=== PATIENT | female | born 1985 | race African-American/Black ===

== ENCOUNTER 2021-06-25 06:13 | Inpatient (IN) | payer MEDICAID ==
[~2021-06-25] VITALS: Ht 167.6 cm; Wt 56.0 kg
[2021-06-25 07:47] LABS: HEMATOCRIT. 35.1 % (36.0-48.0); HEMOGLOBIN. 11.6 g/dL (12.0-16.0); MEAN CORPUSCULAR HEMOGLOBIN 23.3 pg (28.0-32.0); MEAN CORPUSCULAR VOLUME 70.3 fL (81.0-99.0); MEAN PLATELET VOLUME 8.5 fl (7.4-10.4); PLATELET 278 x1000/uL (130-400); RED BLOOD CELL COUNT 4.99 mill/uL (4.2-5.4); RED CELL DISTRIBUTION WIDTH 15.4 % (11.6-14.6)
[2021-06-25 07:53] LABS: CHLORIDE 103 mEq/L (98-107)
[2021-06-25 07:57] LABS: INR 1.1; PROTHROMBIN TIME 11.4 sec (9.6-11.0)
[2021-06-25 09:27] LABS: BG BASE EXCESS 0.3 mmol/L (-2.0-2.0); BG CARBOXYHEMOGLOBIN 0.3 % (0.5-1.5); BG DEOXYHEMOGLOBIN 1.2 % (0.0-5.0); BG FRACTION INSPIRED OXYGEN 28; BG HCO3 ACT 19.7 mmol/L (22.0-26.0); BG METHEMOGLOBIN 0.1 % (0.0-1.5); BG OXYGEN SATURATION 98.8 % (92.0-98.5); BG OXYHEMOGLOBIN 98.4 % (94.0-97.0); BG PCO2 20.1 mmHg (35.0-45.0); BG SAMPLE SITE RIGHT RADIAL; BG TOTAL HEMOGLOBIN 12.6 g/dL (12.0-18.0); BG VENT MODE NASAL CANNULA
[2021-06-25 10:47] LABS: PLATELET ESTIMATE NORMAL
[2021-06-25] MEDS ORDERED: VANCOMYCIN 1 G PREMIX 200 ML IV ONE (12:15)
[2021-06-25] MEDS ORDERED: PIPERACILLIN/TAZ 3.375G PREMIX 50 ML IV ONE (12:15)
[2021-06-25 12:27] LABS: C REACTIVE PROTEIN QUANT 0.2 mg/L (0.0-3.0)
[2021-06-25 12:54] LABS: D-DIMER 0.77 mg/L FEU (<0.50)
[2021-06-25] MEDS ORDERED: ZOLPIDEM TARTRATE 5MG TABLET PO PRN (15:30)
[2021-06-25] MEDS ORDERED: KETOROLAC 15MG/ML VIAL IV PRN (15:30)
[2021-06-25] MEDS ORDERED: GUAIFENESIN 200MG/10ML SUGAR FREE UDC PO PRN (15:30)
[2021-06-25] MEDS ORDERED: DOCUSATE SODIUM 100MG CAPSULE PO PRN (15:30)
[2021-06-25] MEDS ORDERED: MAGNESIUM/ALUMINUM HYDROXIDE/SIMETHICONE 30ML UDC PO PRN (15:30)
[2021-06-25] MEDS ORDERED: ACETAMINOPHEN 325MG TABLET PO PRN ×2 (15:30)
[2021-06-25] MEDS ORDERED: ALBUTEROL 6.7GM HFA INHALER ORI PRN (15:30)
[2021-06-25] MEDS ORDERED: CLONIDINE 0.1MG TABLET PO PRN (15:30)
[2021-06-25] MEDS ORDERED: ONDANSETRON HCL 4MG/2ML INJ IV PRN (15:30)
[2021-06-25] MEDS ORDERED: DEXAMETHASONE 6MG TABLET PO SCH (15:31)
[2021-06-25] MEDS ORDERED: NITROGLYCERIN 0.4MG TABLET SL SL PRN (15:45)
[2021-06-25] MEDS ORDERED: NOREPINEPHRINE 8 MG in DEXT 5% WATER 242 ML IV PRN (16:00)
[2021-06-25] MEDS ORDERED: ENOXAPARIN 40MG/0.4ML SYR SUBCUT SCH (16:00)
[2021-06-25] MEDS ORDERED: AZITHROMYCIN 500 MG in DEXT 5% WATER 250 ML IV SCH (16:00)
[2021-06-25 16:26] LABS: FOLIC ACID (FOLATE) SERUM >20 ng/mL ng/mL (>5.38)
[2021-06-25 16:38] LABS: VITAMIN B12 SERUM 985 pg/mL (211-911)
[2021-06-25] MEDS ORDERED: CEFTRIAXONE 1,000 MG in DEXTROSE 5% WATER 50 ML IV SCH (17:00)
[2021-06-25 17:15] LABS: CLARITY URINE CLOUDY (CLEAR); COLOR URINE DARK YELLOW (YELLOW); KETONES URINE TRACE (NEGATIVE); LEUKOCYTE ESTERASE URINE 1+ (NEGATIVE); NITRITE URINE NEGATIVE (NEGATIVE); OCCULT BLOOD URINE 3+ (NEGATIVE); PH URINE 5.5 (4.5-8.0); PROTEIN URINE 2+ (NEGATIVE); UROBILINOGEN URINE 0.2 E.U./dL (0.2-1.0)
[2021-06-25 17:28] LABS: *AMPHETAMINES SCREEN URINE NEGATIVE (NEGATIVE); *BARBITURATES SCREEN URINE NEGATIVE (NEGATIVE); *BENZODIAZEPINES SCREEN URINE NEGATIVE (NEGATIVE); METHADONE URINE SCREEN NEGATIVE (NEGATIVE)
[2021-06-25 17:29] LABS: OPIATES URINE SCREEN NEGATIVE (NEGATIVE); PHENCYCLIDINE URINE SCREEN NEGATIVE (NEGATIVE)
[2021-06-25 17:29] LABS: CREATINE KINASE 182 IU/L (26-192)
[2021-06-25 17:30] LABS: CREATINE KINASE MB FRACTION < 1.0 ng/mL (0.5-3.6)
[2021-06-25 17:38] LABS: *COCAINE SCREEN URINE PRESUMTIVE POSITIVE (NEGATIVE); CANNABINOID URINE SCREEN PRESUMTIVE POSITIVE (NEGATIVE)
[2021-06-25 20:00] VITALS: BP 100/63
[2021-06-25] MEDS ORDERED: ALBUTEROL 6.7GM HFA INHALER ORI SCH (21:00)
[2021-06-25] MEDS ORDERED: FAMOTIDINE 20MG TABLET PO SCH (21:00)
[2021-06-25] MEDS ORDERED: ASCORBIC ACID 500 MG TABLET PO SCH (21:00)
[2021-06-25] MEDS ORDERED: GUAIFENESIN 600MG ER TABLET PO SCH (21:00)
[2021-06-26] MEDS ORDERED: CEFTRIAXONE 1 G PREMIX 50 ML IV SCH (09:00)
[2021-06-26] MEDS ORDERED: ZINC SULFATE 220 MG ( 50 ) CAPSULE PO SCH (09:00)
== END 2021-06-25 21:22 | disposition left against medical advice (07) | DRG 137 ==
LOC: ER 06:13 → MICUSO 12:32
PROVIDERS: ADMIT Internal Medicine; ATTEND Internal Medicine
DX: U07.1 COVID-19 (principal); J96.01 Acute respiratory failure with hypoxia; J12.82 Pneumonia due to coronavirus disease 2019; J45.909 Unspecified asthma, uncomplicated; E87.1 Hypo-osmolality and hyponatremia; R74.01 Elevation of levels of liver transaminase levels
CPT/HCPCS: 36415; 36600; 71045; 80053; 80061; 80305; 81003; 82375; 82550; 82553; 82607; 82728; 82746; 82805; 83036; 83540; 83550; 83605; 83615; 84145; 84484; 85025; 85379; 85384; 86140; 87426; 93005; 93970; 99291; J0456; J0696; J1650; J1885; J2543; J3370; J7060